=== PATIENT | female | born 1975 | race Caucasian/White ===

== ENCOUNTER 2023-12-29 13:52 | Emergency (ER) | payer BC ==
[~2023-12-29] VITALS: Ht 160 cm; Wt 56.7 kg
[2023-12-29 13:55] VITALS: O2SAT 98
[2023-12-29] MEDS ORDERED: LIDOCAINE 2% (GLYDO= UROJET) 10 ML JELLY MM ONE (14:09)
[2023-12-29] MEDS: LIDOCAINE 2% (GLYDO= UROJET) 10 ML JELLY MM ONE (14:30)
[2023-12-29] MEDS ORDERED: ONDANSETRON ODT 4 MG TAB.RAPDIS ONE (14:37)
[2023-12-29] MEDS: ONDANSETRON ODT 4 MG TAB.RAPDIS SL ONE (14:41)
[2023-12-29 14:43] LABS: *BLOOD, URINE 3+ (NEGATIVE); *CLARITY,URINE CLEAR (CLEAR); *COLOR,URINE Orange (YELLOW); *KETONES,URINE 1+ (NEGATIVE); LEUKOCYTE ESTERASE ,URINE 3+ (NEGATIVE); NITRITE, URINE POSITIVE (NEGATIVE)
[2023-12-29 14:48] LABS: *URINE HCG, QUAL NEGATIVE (NEGATIVE)
[2023-12-29 14:50] LABS: *BILIRUBIN,URIN 2+ (NEGATIVE); *PROTEIN,URINE 3+ (NEGATIVE); UGLUCOSE 1+ (NEGATIVE)
[2023-12-29 15:04] LABS: BACTERIA,URINE MANY /HPF (NONE SEEN); SQUAMOUS EPITHELIAL CELL,UR MODERATE /HPF (NONE SEEN); WBC,URINE 80-100 /HPF (0-3); YEAST,URINE MODERATE /HPF (NONE SEEN)
[2023-12-29] MEDS ORDERED: GENTAMICIN SULFATE 20 MG/2 ML VIAL IV ONE (16:15)
[2023-12-29] MEDS ORDERED: GENTAMICIN SULFATE 80 MG/2 ML VIAL ONE (16:18)
[2023-12-29] MEDS: GENTAMICIN SULFATE 80 MG/2 ML VIAL IM ONE (16:18)
[2023-12-29] MEDS ORDERED: TAMS-3 PO (16:26)
[2024-01-07] MEDS ORDERED: NITR100C6 PO (15:56)
== END 2023-12-29 16:32 | disposition home or self-care (01) ==
LOC: ER 13:53
DX: N30.10 Interstitial cystitis (chronic) without hematuria (principal); R10.2 Pelvic and perineal pain; R33.9 Retention of urine, unspecified; Z90.49 Acquired absence of other specified parts of digestive tract; Z79.899 Other long term (current) drug therapy
CPT/HCPCS: 51702; 84703; A4606; A4663; J1580; Q0162

== ENCOUNTER 2023-12-30 09:13 | Emergency (ER) | payer BC ==
[~2023-12-30] VITALS: Ht 160 cm; Wt 56.7 kg
[~2023-12-30 09:13] MED LIST: TAMS-3 PO
[2023-12-30] MEDS ORDERED: LIDOCAINE 2% (GLYDO= UROJET) 10 ML JELLY MM ONE (09:37)
[2023-12-30] MEDS: LIDOCAINE 2% (GLYDO= UROJET) 10 ML JELLY MM ONE (10:24)
[2023-12-30 10:33] LABS: *BILIRUBIN,URIN 2+ (NEGATIVE); *BLOOD, URINE 3+ (NEGATIVE); *CLARITY,URINE CLOUDY (CLEAR); *COLOR,URINE Orange (YELLOW); *KETONES,URINE TRACE (NEGATIVE); *PROTEIN,URINE 3+ (NEGATIVE); LEUKOCYTE ESTERASE ,URINE 3+ (NEGATIVE); NITRITE, URINE POSITIVE (NEGATIVE); UGLUCOSE 1+ (NEGATIVE)
[2023-12-30 10:36] LABS: BACTERIA,URINE MANY /HPF (NONE SEEN); RBC,URINE 80-100 /HPF (0-3); URINE AMORPHOUS URATE MANY /HPF; WBC,URINE 80-100 /HPF (0-3)
[2023-12-30 11:15] VITALS: BP 113/74; TEMP 97.6; O2SAT 99
== END 2023-12-30 11:48 | disposition home or self-care (01) ==
LOC: ER 09:13
DX: N30.10 Interstitial cystitis (chronic) without hematuria (principal); R33.9 Retention of urine, unspecified; Z79.899 Other long term (current) drug therapy
CPT/HCPCS: 51702; A4606; A4663

== ENCOUNTER 2024-01-02 15:07 | Emergency (ER) | payer BC ==
[~2024-01-02] VITALS: Ht 160 cm; Wt 56.7 kg
[2024-01-02 15:16] VITALS: O2SAT 92
[2024-01-02] MEDS: LIDOCAINE 2% (GLYDO= UROJET) 10 ML JELLY MM ONE (15:30)
[2024-01-02] MEDS ORDERED: LIDOCAINE 2% (GLYDO= UROJET) 10 ML JELLY MM ONE (16:22)
[2024-01-02 16:31] LABS: *BILIRUBIN,URIN 1+ (NEGATIVE); *BLOOD, URINE 3+ (NEGATIVE); *COLOR,URINE DARK YELLOW (YELLOW); *KETONES,URINE 1+ (NEGATIVE); *PROTEIN,URINE 3+ (NEGATIVE); LEUKOCYTE ESTERASE ,URINE 3+ (NEGATIVE); NITRITE, URINE POSITIVE (NEGATIVE); PH,URINE 5.5 (5.0-8.0); UGLUCOSE TRACE (NEGATIVE)
[2024-01-02 16:36] LABS: *CLARITY,URINE SLIGHTLY CLOUDY (CLEAR)
[2024-01-02 16:39] LABS: WBC,URINE 80-100 /HPF (0-3)
[2024-01-02 16:40] LABS: BACTERIA,URINE MANY /HPF (NONE SEEN); SQUAMOUS EPITHELIAL CELL,UR MODERATE /HPF (NONE SEEN)
[2024-01-07] MEDS ORDERED: NITR100C6 PO (15:56)
== END 2024-01-02 17:30 | disposition home or self-care (01) ==
LOC: ER 15:07
DX: N30.10 Interstitial cystitis (chronic) without hematuria (principal)
CPT/HCPCS: A4606; A4663